=== PATIENT | male | born 1985 | race Caucasian/White ===

== ENCOUNTER → 2018-01-04 08:45 | Outpatient (CLI) | payer OTHER, SELFPAY ==
[2018-01-04 11:51] LABS: HIV - WCH Non-Reactive (Nonreactive)
[2018-01-05 17:43] LABS: HEPATITIS B SURFACE AG Negative (Negative); Hep B Surface Antibodies Non Reactive (.); Hep C Antibodies <0.1 s/co ratio (0.0-0.9)
== END ==
PROVIDERS: Visit Provider Physician Assistant Surgical
DX: Z77.21 Contact with and (suspected) exposure to potentially hazardous body fluids (principal)
CPT/HCPCS: 36415; 86703; 86706; 86803; 87340